=== PATIENT | male | born 1995 | race Caucasian/White ===

== ENCOUNTER 2019-02-20 00:32 | Emergency (ER) | payer OTHER ==
[~2019-02-20] VITALS: Ht 190.5 cm; Wt 154.2 kg
[~2019-02-20 00:32] MED LIST: ALBU90OI6 INH; Flovent 220 Ora12 GM INH
[2019-02-20] MEDS ORDERED: CYCL10 PO (01:42)
[2019-02-20] MEDS ORDERED: IBU600 MG PO (01:42)
== END 2019-02-20 01:55 | disposition home or self-care (01) ==
LOC: ER 00:32
DX: M54.41 Lumbago with sciatica, right side (principal); Z79.899 Other long term (current) drug therapy; J45.909 Unspecified asthma, uncomplicated
CPT/HCPCS: 73502; 99283-25

== ENCOUNTER 2021-04-26 19:13 | Emergency (ER) | payer OTHER ==
[~2021-04-26] VITALS: Ht 190.5 cm; Wt 156.5 kg
[~2021-04-26 19:13] MED LIST changes: +CYCL10 PO; +IBU600 MG PO
[2021-04-26] MEDS ORDERED: ONDA4ODT MM (19:35)
== END 2021-04-26 19:41 | disposition home or self-care (01) ==
LOC: ER 19:13
DX: U07.1 COVID-19 (principal); J45.909 Unspecified asthma, uncomplicated; Z79.899 Other long term (current) drug therapy
CPT/HCPCS: 99282

== ENCOUNTER 2021-04-28 08:26 | Emergency (ER) | payer OTHER ==
[~2021-04-28] VITALS: Ht 190.5 cm; Wt 156.5 kg
[~2021-04-28 08:26] MED LIST changes: +ONDA4ODT MM
[2021-04-28] MEDS ORDERED: DOXY100 PO (09:48)
== END 2021-04-28 10:02 | disposition home or self-care (01) ==
LOC: ER 08:26
DX: U07.1 COVID-19 (principal); J12.82 Pneumonia due to coronavirus disease 2019; J45.909 Unspecified asthma, uncomplicated; Z79.899 Other long term (current) drug therapy
CPT/HCPCS: 71045; 99283-25; J1100

== ENCOUNTER → 2021-07-30 | Outpatient (CLI) | payer OTHER ==
[~2021-07-30] MED LIST changes: +DOXY100 PO
[2021-07-30 13:46] LABS: BASOPHILS ABSOLUTE AUTO 0.06 K/mm3 (0.00-0.23); BASOPHILS PERCENT AUTO 1 % (0-2); EOSINOPHILS ABSOLUTE AUTO 0.16 K/mm3 (0.00-0.68); EOSINOPHILS PERCENT AUTO 1 % (0-6); Hematocrit 48.4 % (37.0-53.0); Hemoglobin 17.2 g/dL (13.5-17.5); IMMATURE GRAN ABSOLUTE AUTO 0.06 K/mm3 (0.00-0.10); IMMATURE GRAN PERCENT AUTO 1 % (0-1); LYMPHOCYTES ABSOLUTE AUTO 2.92 K/mm3 (0.84-5.20); LYMPHOCYTES PERCENT AUTO 24 % (21-46); MONOCYTES ABSOLUTE AUTO 0.66 K/mm3 (0.16-1.47); MONOCYTES PERCENT AUTO 6 % (4-13); Mean Corpuscular HGB 29.2 pg (26.0-34.0); Mean Corpuscular HGB Conc 35.5 g/dL (31.5-36.5); Mean Corpuscular Volume 82 fL (80-100); Mean Platelet Volume 11.9 fL (9.1-12.4); NEUTROPHILS ABSOLUTE AUTO 8.16 K/mm3 (1.96-9.15); NEUTROPHILS PERCENT AUTO 68 % (41-73); Platelet Count 277 K/mm3 (150-400); RDW Coefficient Variation 12.4 % (11.7-14.2); RDW Standard Deviation 36.9 fL (35.1-46.3); Red Blood Cell Count 5.89 M/mm3 (4.30-5.90); White Blood Cell Count 12.02 K/mm3 (4.00-11.30)
[2021-07-30 14:06] LABS: Alanine Aminotransfer (ALT/SGP 142 U/L (12-78); Albumin, Blood 4.4 g/dL (3.4-5.0); Albumin/Globulin Ratio 1.2 (0.8-1.8); Alk Phos 75 U/L (40-126); Anion Gap 11 mmol/L (6-16); Aspartate Aminotrans (AST/SGOT 49 U/L (12-37); Bilirubin, Total 0.7 mg/dL (0.1-1.0); Blood Urea Nitrogen 9 mg/dL (8-24); Bun/Creatinine Ratio 12.7 (12.0-20.0); CO2, Blood 27 mmol/L (21-32); Calcium, Blood 9.4 mg/dL (8.5-10.1); Chloride, Blood 100 mmol/L (98-108); Creatinine, Blood 0.71 mg/dL (0.60-1.20); Globulin, Blood 3.6 g/dL (2.2-4.0); Glomerular Filtration Rate >60 (60-); Glucose, Blood 269 mg/dL (70-99); Potassium, Blood 3.9 mmol/L (3.5-5.5); Sodium, Blood 138 mmol/L (136-145); Thyroid Stimulating Hormone 1.383 uIU/mL (0.360-4.800)
== END ==
LOC: LAB SHORT 13:40
PROVIDERS: Physician Assistant
DX: R81 Glycosuria (principal); R53.83 Other fatigue
CPT/HCPCS: 80053; 83036; 84443; 85025

== ENCOUNTER → 2021-11-05 | Outpatient (CLI) | payer OTHER | LOC: LAB SHORT 12:50 → LAB 12:50 | DX: J02.9 Acute pharyngitis, unspecified (principal) | CPT/HCPCS: 87081 ==

== ENCOUNTER → 2021-11-08 | Outpatient (CLI) | payer OTHER ==
[2021-11-08 16:03] LABS: BASOPHILS ABSOLUTE AUTO 0.07 K/mm3 (0.00-0.23); BASOPHILS PERCENT AUTO 1 % (0-2); EOSINOPHILS ABSOLUTE AUTO 0.22 K/mm3 (0.00-0.68); EOSINOPHILS PERCENT AUTO 2 % (0-6); Hematocrit 46.3 % (37.0-53.0); Hemoglobin 16.4 g/dL (13.5-17.5); IMMATURE GRAN ABSOLUTE AUTO 0.06 K/mm3 (0.00-0.10); IMMATURE GRAN PERCENT AUTO 1 % (0-1); LYMPHOCYTES ABSOLUTE AUTO 3.02 K/mm3 (0.84-5.20); LYMPHOCYTES PERCENT AUTO 23 % (21-46); MONOCYTES PERCENT AUTO 6 % (4-13); Mean Corpuscular HGB 29.7 pg (26.0-34.0); Mean Corpuscular HGB Conc 35.4 g/dL (31.5-36.5); Mean Corpuscular Volume 84 fL (80-100); NEUTROPHILS ABSOLUTE AUTO 8.98 K/mm3 (1.96-9.15); NEUTROPHILS PERCENT AUTO 68 % (41-73); Platelet Count 280 K/mm3 (150-400); RDW Coefficient Variation 12.4 % (11.7-14.2); RDW Standard Deviation 37.5 fL (35.1-46.3); Red Blood Cell Count 5.53 M/mm3 (4.30-5.90); White Blood Cell Count 13.15 K/mm3 (4.00-11.30)
[2021-11-08 16:12] LABS: Alanine Aminotransfer (ALT/SGP 62 U/L (12-78); Alk Phos 63 U/L (40-126); Anion Gap 9 mmol/L (6-16); Aspartate Aminotrans (AST/SGOT 26 U/L (12-37); Bilirubin, Total 0.7 mg/dL (0.1-1.0); Blood Urea Nitrogen 9 mg/dL (8-24); Bun/Creatinine Ratio 11.3 (12.0-20.0); CO2, Blood 28 mmol/L (21-32); Calcium, Blood 9.3 mg/dL (8.5-10.1); Chloride, Blood 104 mmol/L (98-108); Glomerular Filtration Rate >60 (60-); Glucose, Blood 160 mg/dL (70-99); Potassium, Blood 4.1 mmol/L (3.5-5.5); Sodium, Blood 141 mmol/L (136-145)
== END | disposition home or self-care (01) ==
LOC: LAB SHORT 15:55
PROVIDERS: Physician Assistant
DX: D72.829 Elevated white blood cell count, unspecified (principal); R73.9 Hyperglycemia, unspecified; M54.12 Radiculopathy, cervical region
CPT/HCPCS: 80053; 83036; 85025; 85060